=== PATIENT | female | born 1970 | race Caucasian/White ===

== ENCOUNTER → 2023-08-21 19:30 | Outpatient (REF) | payer BC, SELFPAY | LOC: WDC 19:30 | PROVIDERS: ATTENDING PHYSICIAN Obstetrics & Gynecology; FAMILY PHYSICIAN Student in an Organized Health Care Education/Training Program | DX: Z12.31 Encounter for screening mammogram for malignant neoplasm of breast (principal) | CPT/HCPCS: 77063; 77067 ==

== ENCOUNTER 2023-12-26 14:21 | Emergency (ER) | payer BC, SELFPAY ==
[2023-12-26 14:31] VITALS: BP 157/93
[2023-12-26 15:13] LABS: % Basophils 0.9 % (0-2); % Eosinophils 1.6 % (0-6); % Immature Granulocytes 0.2 % (0-0.5); % Lymphocytes 29.4 % (20.5-51.1); % Monocytes 6.7 % (1.7-9.3); % Neutrophils 61.2 % (42.2-75.2); Absolute Eosinophils 0.1 10^3/uL (0-0.7); Absolute Lymphocytes 1.3 10^3/uL (1.2-3.4); Absolute Monocytes 0.3 10^3/uL (0.1-0.6); Absolute Neutrophils 2.7 10^3/uL (1.4-6.5); Hematocrit 40.6 % (37.0-47.0); Hemoglobin 13.3 g/dL (12.0-16.0); Mean Corp Hgb Conc. 32.8 g/dL (33.0-37.0); Mean Corpuscular Hgb 26.8 pg (27.0-31.0); Mean Corpuscular Volume 81.9 fL (81.0-99.0); Mean Platelet Volume 10.4 fL (7.4-10.4); Nucleated Red Blood Cells % 0 %; Platelet Count 321 10^3/uL (130-400); Red Blood Cell Count 4.96 10^6/uL (4.20-5.40); White Blood Cell Count 4.4 10^3/uL (4.8-10.8)
[2023-12-26 15:28] LABS: ALT (SGPT) 15 U/L (0-35); AST (SGOT) 21 U/L (14-36); Albumin 4.6 g/dl (3.5-5.0); Alkaline Phosphatase 80 U/L (38-126); Blood Urea Nitrogen 10 mg/dl (7-17); Calcium 9.3 mg/dl (8.4-10.2); Carbon Dioxide 23 mmol/L (22-30); Chloride 102 mmol/L (98-107); Glucose 91 mg/dl (70-99); Potassium 4.5 mmol/L (3.5-5.1); Sodium 139 mmol/L (135-145); Total Bilirubin 0.6 mg/dl (0.2-1.3); Total Protein 7.2 g/dl (6.3-8.2); eGFR > 60.00
[2023-12-26 15:37] LABS: INR 1.01; PT 13.3 Sec (11.4-14.6)
[2023-12-26 15:55] LABS: APTT 29.1 Sec (23.4-35.0)
--- NOTE | 2023-12-26 16:00 | ED.GENMED ---
History of Present Illness
General
Chief Complaint: Abdominal Symptoms
Source: patient
Exam Limitations: none
Time Seen by Provider: 12/26/23 15:18
Nursing documentation reviewed up to this point in time: agreed with
History of Present Illness
History of Present Illness:
Patient to ED with complaint of vomiting. States she has noted a changed in BM over the past month. Reports constipation with overall change in stool shape/size. Today she had 2 episodes of vomiting and noticed black flecks. PCP was concerned
about possible bleeding. Sent to ED for eval. Denies fever/chills, recent illness. No sick contacts. Brought self to ED for eval.
Past History
Past History
ED Past Medical History: None
Social History
Tobacco: Non-smoker
Alcohol: Occasional
Review of Systems
Review of Systems
Allergies reviewed?: Yes
All Other Systems: ROS reviewed and negative except as documented in HPI and ROS
Constitutional: Reports no symptoms
EENT: Reports no symptoms
Respiratory: Reports no symptoms
Cardiac: Reports no symptoms
ABD/GI: Reports nausea, vomiting and constipated
: Reports no symptoms
Musculoskeletal: Reports no symptoms
Skin: Reports no symptoms
Neurological: Reports no symptoms
Psychiatric: Reports no symptoms
Phy Exam
General Physical Exam
General Presentation: well appearing and no apparent distress
General age: appears stated age
General Skin: warm and dry
General Habitus: normal
General Mental: alert
General Hydration: appears well hydrated
Cardiovascular Exam
Cardiovascular Exam: regular rate/rhythm and no edema
Pulmonary Exam
Pulmonary Exam: no respiratory distress
Gastrointestinal Exam
Gastrointestinal Exam: normal bowel sounds, non tender, soft, no organomegaly, non distended and no cva tenderness
Rectal Exam: normal sphincter tone, hemorrhoids and no rectal mass
Stool: brown
Guaiac Status: negative
Musculoskeletal Exam
Musculoskeletal Exam: full ROM and neuro vasc intact
Skin Exam
Skin Exam: normal color, warm/dry and no rash
Psychiatric Exam
Psychiatric Exam: normal mood/affect
Course
Orders/Labs/Results
Orders:
Orders
12/26/23 14:39
Complete Blood Count/With Diff Urgent
Comprehensive Metabolic Panel Urgent
Lipase Urgent
Comment: ADD ON
PT/INR [Prothrombin Time] Urgent
PTT Urgent
12/26/23 15:57
CT Abd/pel W Iv And Oral Contr Urgent
Comment:
Reason For Exam: vomiting, abd. pain
Iohexol [Omnipaque] See Protocol PO NOW STA
12/26/23 15:58
Add On- LAB Urgent
Tests Added?: lipase
12/26/23 16:03
Ondansetron Injectable [Zofran] 4 mg IV NOW STA
12/26/23 16:09
Urinalysis Reflex To Culture Urgent
Date Specimen was Collected: 12/26/23
Time Specimen was Collected: 16:04
Urine Microscopic Reflex Cult Urgent
Abnormal Lab Results
12/26/23 12/26/23
14:39 16:09
WBC 4.4 L 10^3/uL
(4.8-10.8)
MCH 26.8 L pg
(27.0-31.0)
MCHC 32.8 L g/dL
(33.0-37.0)
Urine Ketones 2+ A
(Negative)
Ur Occult Blood Reflex Trace A
(Negative)
Urine Bacteria (Reflex) Few A
(Negative)
12/26/23 14:39
12/26/23 14:39
Vital Signs
Initial and Last Documented VS:
Initial Vital Signs
Temp Pulse Resp BP Pulse Ox
98.4 F 77 18 157/93 100
12/26/23 14:31 12/26/23 14:31 12/26/23 14:31 12/26/23 14:31 12/26/23 14:31
Last Documented Vital Signs
Temp Pulse Resp BP Pulse Ox
98.4 F 71 18 119/76 99
12/26/23 14:31 12/26/23 18:56 12/26/23 18:56 12/26/23 18:56 12/26/23 18:56
*Radiology
Radiology exam reviewed: radiology read reviewed
*Pulse Oximetry
Patient hypoxic: no
*Critical Care Note
Total Time (30-74mins, 75-104mins- exclusive of procedures): Not Applicable
ED Attending Note
-
Portions of this chart may have been created with voice recognition software.� Occasional wrong word or��sound alike� substitutions may have occurred due to the inherent limitations of voice recognition software.
Discharge Plan
Departure
Patient Disposition: Home (Routine Discharge)
Date of Disposition: 12/26/23
Time of Disposition: 19:04
Patient with high blood pressure during this ER visit?: No
Condition: Good
Covid-19: Not Applicable
Discharge Problem:
Abdominal pain
Instructions: Nausea and Vomiting, Adult (DC), Abdominal Pain
Prescriptions:
New
ondansetron 4 mg tablet,disintegrating
4 mg PO TID PRN (Reason: nausea and vomiting) 4 Days Qty: 12 0RF
Referrals:
UNKNOWN - PT DOES,NOT KNOW [Family Provider] -
Activity Restrictions/Additional Instructions:
Follow up with your healthcare provider in the AM. Return to the emergency department for any changes in/worsening of your symtoms
Interventions
Interventions:
*Risk Screen - Suicide Last Done: 12/26/23 14:31
*General Assessment Last Done: 12/26/23 14:31
*Neglect/Abuse Screening Last Done: 12/26/23 14:31
ED- Fall Risk Assessment Last Done: 12/26/23 16:17
*ED COVID-19 Vaccine History Last Done: 12/26/23 16:37
*Nursing Disposition Last Done: 12/26/23 19:14
DS-Subgqk-Lefylnuukk Assessment Last Done: 12/26/23 16:17
Discharge Date and Time
Discharge Date/Time: 12/26/23 19:14
Print Language: [facility]
[2023-12-26] MEDS: ZOFRAN 4 MG IV (16:14)
[2023-12-26] MEDS: OMNIPAQUE 50 ML PO (16:14)
[2023-12-26 16:29] LABS: Urine Albumin Negative (Neg - Trace); Urine Bilirubin Negative (Negative); Urine Character Clear (Clear); Urine Color Yellow; Urine Glucose Negative (Negative); Urine Ketone 2+ (Negative); Urine Leukocyte Negative (Negative); Urine Nitrite Negative (Negative); Urine Occult Blood Trace (Negative); Urine Specific Gravity 1.025 (<1.030); Urine Urobilinogen Negative (Neg - 1+)
[2023-12-26 16:35] LABS: Lipase 44 U/L (23-300)
[2023-12-26 16:39] LABS: Urine Bacteria Few (Negative); Urine Red Blood Cell 0-2 /HPF (0-2); Urine White Cell 0-2 /HPF (0-5)
[2023-12-26 16:40] LABS: Urine Mucus Moderate
[2023-12-26 18:56] VITALS: BP 119/76
== END 2023-12-26 19:14 | disposition home or self-care (01) ==
LOC: EMR 14:21
PROVIDERS: Nurse Practitioner; EMERGENCY PHYSICIAN Emergency Medicine
DX: R10.9 Unspecified abdominal pain (principal); R11.2 Nausea with vomiting, unspecified; K59.00 Constipation, unspecified; R51.9 Headache, unspecified; K64.9 Unspecified hemorrhoids
CPT/HCPCS: 99284; 96374; 74177; 80053; 81003; 81015; 83690; 85025; 85610; 85730; Q9967

== ENCOUNTER → 2024-03-06 20:09 | Outpatient (REF) | payer BC, SELFPAY | LOC: MRI 20:09 | PROVIDERS: ATTENDING PHYSICIAN Nurse Practitioner Adult Health; FAMILY PHYSICIAN Student in an Organized Health Care Education/Training Program | DX: E34.8 Other specified endocrine disorders (principal) | CPT/HCPCS: 70553; A9575 ==

== ENCOUNTER → 2024-04-15 06:29 | Day surgery (SDC) | payer BC, SELFPAY | LOC: GI 06:29 | PROVIDERS: ATTENDING PHYSICIAN Specialist | PROC: 0DJD8ZZ Inspection of Lower Intestinal Tract, Via Natural or Artificial Opening Endoscopic (ICD-10-PCS; 2024-04-15) | DX: Z12.11 Encounter for screening for malignant neoplasm of colon (principal); Z86.0101 Personal history of adenomatous and serrated colon polyps; K57.30 Diverticulosis of large intestine without perforation or abscess without bleeding | CPT/HCPCS: G0105 ==